=== PATIENT | male | born 1950 | race Caucasian/White ===

== ENCOUNTER 2022-01-10 17:55 | Emergency (ER) | payer MEDICARE ==
[~2022-01-10] VITALS: Ht 177.8 cm; Wt 101.2 kg
[~2022-01-10 17:55] MED LIST: AZOR 5-20 MG T1 EACH PO; FENOFIBRATE145 MG PO; LANTUS100 UNIT/1 SQ; LIPITOR20 MG PO; METFORMIN HCL500 MG PO; OMEPRAZOLE MAGN20 MG PO; PILOCARPINE HCL5 MG PO; SOLARAZE100 GM TOP; SYNTHROID75 MCG PO
== END 2022-01-10 19:00 | disposition home or self-care (01) ==
LOC: ER 17:59
DX: K59.03 Drug induced constipation (principal); I10 Essential (primary) hypertension; E11.9 Type 2 diabetes mellitus without complications; E78.5 Hyperlipidemia, unspecified; E03.9 Hypothyroidism, unspecified; E78.00 Pure hypercholesterolemia, unspecified; Z85.818 Personal history of malignant neoplasm of other sites of lip, oral cavity, and pharynx
CPT/HCPCS: 99282

== ENCOUNTER 2022-06-01 13:41 | Emergency (ER) | payer MEDICARE, OTHER ==
[~2022-06-01] VITALS: Ht 177.8 cm; Wt 101.2 kg
[2022-06-01] MEDS ORDERED: SODIUM CHLORIDE FLUSH 10 ML SYR IV PRN (14:00)
[2022-06-01 14:20] LABS: BASOPHILS # (AUTO) 0.1 (0.0-0.1); BASOPHILS % 0.5 % (0.0-1.0); EOSINOPHILS # (AUTO) 0.1 (0.0-0.4); EOSINOPHILS % 1.1 % (0.0-6.0); HEMATOCRIT 47.2 % (38.2-49.6); MEAN CORPUSCULAR HGB CONC 33.9 g/dL (31-35); MEAN CORPUSCULAR VOLUME 82.7 fL (81-99); MONOCYTES # (AUTO) 0.9 (0.2-0.8); MONOCYTES % 9.3 % (4.4-11.3); NEUTROPHILS # (AUTO) 7.1 (2.1-6.9); NEUTROPHILS % 77.4 % (38.7-80.0); PLATELET COUNT 260 x10e3/uL (140-360); RED BLOOD COUNT 5.71 x10e6/uL (4.3-5.7); RED CELL DISTRIBUTION WIDTH 14.3 % (11.7-14.4)
[2022-06-01 14:39] LABS: ALBUMIN 3.9 g/dL (3.5-5.0); ANION GAP 16.3 mmol/L (8-16); CALCIUM 8.9 mg/dL (8.4-10.2); CREATININE, SERUM 1.67 mg/dL (0.72-1.25); POTASSIUM 3.3 mmol/L (3.5-5.1)
== END 2022-06-01 16:15 | disposition home or self-care (01) ==
LOC: ER 13:56
DX: R07.9 Chest pain, unspecified (principal); W01.0XXA Fall on same level from slipping, tripping and stumbling without subsequent striking against object, initial encounter; Y93.01 Activity, walking, marching and hiking; Y92.89 Other specified places as the place of occurrence of the external cause; E11.65 Type 2 diabetes mellitus with hyperglycemia; I10 Essential (primary) hypertension; E78.5 Hyperlipidemia, unspecified; E03.9 Hypothyroidism, unspecified; Z20.822 Contact with and (suspected) exposure to COVID-19; Z85.818 Personal history of malignant neoplasm of other sites of lip, oral cavity, and pharynx
CPT/HCPCS: 36415; 71045; 80053; 84484; 85025; 93005; 94760; 99284; U0002